=== PATIENT | female | born 1975 | race Hispanic/Latino ===

== ENCOUNTER 2023-02-22 22:16 | Emergency (ER) | payer OTHER ==
[2023-02-22] MEDS ORDERED: hydrOXYzine 25 MG TAB ONE (22:48)
[2023-02-22] MEDS ORDERED: Cyclobenzaprine 10 MG TAB ONE (23:37)
== END 2023-02-23 | disposition home or self-care (01) ==
LOC: CSHERS 22:16
DX: R20.2 Paresthesia of skin (principal); I10 Essential (primary) hypertension; E11.9 Type 2 diabetes mellitus without complications; Z79.4 Long term (current) use of insulin; Z79.899 Other long term (current) drug therapy
CPT/HCPCS: 93005